=== PATIENT | female | born 1970 | race Caucasian/White ===

== ENCOUNTER 2022-09-20 19:02 | Emergency (ER) | payer BC, SELFPAY ==
[2022-09-20 19:04] VITALS: BP 160/80; PULSE 86; RESP 18; TEMP 36.1; O2SAT 97; BMI 28.2
--- NOTE | 2022-09-20 19:15 | ED.GENADULT ---
HPI - General Adult General Chief complaint: Lower Extremity Swelling Stated complaint: Right leg pain Time Seen by Provider: 09/20/22 19:15 History of Present Illness HPI narrative: starting yesterday L calve pain, feels like she can feel a bump in the calve, no hx of blood clots but was concerned due to hx of varicose veins. hurts worse with walking. took 1 naproxen around 0900, didnt really help much. pain has continued to get worse during the day after she went to work and has been on her feet. 51-year-old woman presenting to the emergency department with concern of pain and swelling in her calf. Primary concern seems to be that of a potential blood clot. Notes the does have a history of varicose veins. Is exacerbated by walking. Has taken naproxen sodium without much relief. This is now 2nd day and seems to be worsening. No chest pain or shortness of breath. Was on her feet working today. Pain has definitely gotten worse over this day. There has been no trauma. Related Data Home Medications Medication Instructions Recorded Confirmed norethindrone acetate 1.5 1 tab PO DAILY 09/20/22 09/20/22 mg-ethinyl estradiol 30 mcg tablet (Arabella) Allergies Allergy/AdvReac Type Severity Reaction Status Date / Time No Known Drug Allergies Allergy Verified 09/20/22 19:10 Review of Systems Status of ROS: Reports: 6 or more systems reviewed and unremarkable except as noted in History and below Exam Narrative: Exam Narrative: Pleasant. NAD. Breathing easily. Lungs appear to be clear. Heart in a regular rate and rhythm. Skin is warm and dry. She is well-perfused moving all extremities without difficulty. Examination of lower extremities show numerous superficial varicosities. The medial mid left calf has suggestion of mild swelling faint erythema without calor over an inch and half diameter area. Nodule palpable. Exquisitely tender in this area. No notable asymmetry to fullness around the ankles bilaterally. Hard to discern Homans test as is quite tender to any manipulation. Const: Vital Signs, click to edit/add: Vital Signs - 24 hr 09/20/22 19:04 Temperature 97 F L Pulse Rate [Pulse Oximeter] 86 Respiratory Rate 18 Blood Pressure [Le ft Upper Arm] 160/80 H Pulse Oximetry 97 Oxygen Delivery Me thod Room Air Documenting provider has reviewed patient's vital signs: yes Course Vital Signs Vital signs: Initial Vital Signs Temperature 97 F L 09/20/22 19:04 Temperature Source Temporal Artery Scan 09/20/22 19:04 Pulse Rate 86 09/20/22 19:04 Respiratory Rate 18 09/20/22 19:04 Blood Pressure 160/80 H 09/20/22 19:04 Blood Pressure Mean 106 H 09/20/22 19:04 Blood Pressure Position Sitting 09/20/22 19:04 Pulse Oximetry 97 09/20/22 19:04 Oxygen Delivery Method Room Air 09/20/22 19:04 Vital Signs Temperature 97 F L 09/20/22 19:04 Pulse Rate 86 09/20/22 19:04 Respiratory Rate 18 09/20/22 19:04 Blood Pressure 160/80 H 09/20/22 19:04 Pulse Oximetry 97 09/20/22 19:04 Oxygen Delivery Method Room Air 09/20/22 19:04 Temperature 97 F L 09/20/22 19:04 Pulse Rate 86 09/20/22 19:04 Respiratory Rate 18 09/20/22 19:04 Blood Pressure 160/80 H 09/20/22 19:04 Pulse Oximetry 97 09/20/22 19:04 Oxygen Delivery Method Room Air 09/20/22 19:04 Medical Decision Making MDM Narrative Medical decision making narrative: Dermal changes do not rise to the level of a cellulitis. Given extensiveness of varicosities reproducible pain and superficial palpable nodularity along with exquisite tenderness to light touch I think this is more superficial thrombophlebitis of some form. Did however offer ultrasound but Ms. Rendon is in agreement with diagnosis and will defer. See patient discharge plan Discharge Plan Discharge Clinical Impression: Superficial thrombophlebitis Patient Disposition: Home w/ Parent or Adult Condition: Stable Instructions: Superficial Thrombophlebitis (ED) Additional Instructions: Can use this Ray wrap as compression when up in about or even at night. Can then also adjust degree of compression to your comfort. This may get a little more red in the area in the next couple of days. Watch for marked increase in pain, lower leg swelling, any indication of chest pain or difficulty breathing. Apply warm moist packs a couple of times daily over the next few days, maybe this week. Prescriptions: No Action norethindrone ac-eth estradiol [Arabella] 1.5-30 mg-mcg tablet 1 tab PO DAILY Stand Alone Forms: MyHealth Info Instructions
== END 2022-09-20 20:02 | disposition home or self-care (01) ==
PROVIDERS: Emergency Provider Family Medicine
DX: I80.01 Phlebitis and thrombophlebitis of superficial vessels of right lower extremity (principal)
CPT/HCPCS: 99282; 99283